=== PATIENT | female | born 1960 | race Caucasian/White ===

== ENCOUNTER 2016-09-09 10:21 | Inpatient (IN) | payer BC ==
[2016-09-08 15:48] VITALS: BMI 38.0
[~2016-09-09] VITALS: Ht 160 cm; Wt 96.2 kg
[2016-09-09] VITALS (28 sets, daily range): BP systolic 113–137; BP diastolic 50–69; PULSE 73–110; RESP 10–20; Ht 160 cm; Wt 96.2 kg
[~2016-09-09 10:21] MED LIST: ACET500C5 PO; ASPI81TA3 PO; ATOR40TA68 PO; DESFLURANE 15 MIN ONE; DEXAMETHASONE 4 MG/ML 1 ML INJ ONE; GABA300C16 PO; INSU100V23 SC; LANT3I SC; LORA-441 PO; LORA10TA3 PO; LOSA25TA2 PO; MELO7.5O PO; NOVO3I SC; PANT40TA3 PO; RANI150T9 PO; SUCR1TAB27 PO; VITA400C15 PO
[2016-09-09] MEDS ORDERED: LOSA25TA5 PO (10:50)
[2016-09-09] MEDS ORDERED: METO25TA7 PO (10:51)
[2016-09-09] MEDS ORDERED: ATOR40TA68 PO (10:51)
[2016-09-09] MEDS ORDERED: SITA100T8 PO (10:52)
[2016-09-09] MEDS ORDERED: PARO10TA76 PO (10:52)
[2016-09-09] MEDS ORDERED: CETI10TA34 PO (10:55)
[2016-09-09] MEDS ORDERED: OMEP40CA6 PO (10:56)
[2016-09-09] MEDS ORDERED: SIME125C PO (10:57)
[2016-09-09] MEDS ORDERED: LANT3I SC (10:58)
[2016-09-09] MEDS ORDERED: GABA300C16 PO (11:00)
[2016-09-09] MEDS ORDERED: METF500T4 PO (11:00)
[2016-09-09] MEDS ORDERED: ASPI81TA3 PO (11:00)
[2016-09-09] MEDS ORDERED: BACL10TA PO (11:01)
[2016-09-09] MEDS ORDERED: POLYMYXIN/BACITRACIN 1L IRRIG ONE (12:22)
[2016-09-09] MEDS ORDERED: NEOMYC/POLYMYX/BACIT 30 GM OINT ONE (12:22)
[2016-09-09] MEDS ORDERED: PROPOFOL 20 ML ONE (13:02)
[2016-09-09] MEDS ORDERED: MIDAZOLAM 1 MG/ML 2 ML INJ ONE (13:03)
[2016-09-09] MEDS ORDERED: METOCLOPRAMIDE 10 MG INJ ONE (13:03)
[2016-09-09] MEDS ORDERED: morphine SULFATE/PF (10 MG/10 ML) INJ ONE (13:03)
[2016-09-09] MEDS ORDERED: CEFAZOLIN 1 GM INJ ONE (13:13)
[2016-09-09] MEDS ORDERED: DEXAMETHASONE 4 MG/ML 1 ML INJ ONE (13:13)
--- NOTE | 2016-09-09 13:15 | HPN ---
Date/Time of Note Date/Time of Note DATE: 09/09/16 TIME: 13:15 Interval H&P Admission Note Pt. seen H&P reviewed: No system changes CANELO AVINA MD September 09, 2016 13:15
[2016-09-09] MEDS ORDERED: FENTAnyl 50 MCG/ML VIAL ONE (13:38)
[2016-09-09] MEDS ORDERED: EPHEDrine SULFATE 50 MG/5 ML SYG ONE (13:43)
[2016-09-09] MEDS ORDERED: MEPERIDINE 25 MG INJ IV PRN (14:00)
[2016-09-09] MEDS ORDERED: DIPHENHYDRAMINE 50 MG INJ IV PRN (14:00)
[2016-09-09] MEDS ORDERED: TRANEXAMIC ACID 1,000 MG in SOD CHLORIDE 0.9% 100 ML IV ONE (14:00)
[2016-09-09] MEDS ORDERED: METOCLOPRAMIDE 10 MG INJ IV PRN (14:00)
[2016-09-09] MEDS ORDERED: HYDROmorphONE (0.2 MG/ML) 10ML SYG IV PRN ×3 (14:00)
[2016-09-09] MEDS ORDERED: ONDANSETRON 4 MG INJ IV PRN ×3 (14:00→16:00)
[2016-09-09] MEDS ORDERED: NALOXONE (0.4 MG/ML) INJ IV PRN (14:30)
[2016-09-09] MEDS ORDERED: HYDROmorphONE 1 MG/ML SYG IV PRN ×3 (14:30)
[2016-09-09] MEDS: CEFAZOLIN 1 GM/50 ML (PMX) 50 ML IVPB SCH (16:10)
[2016-09-09 16:31] LABS: HEMOGLOBIN 12.8 g/dl (12.0-16.0)
[2016-09-09 16:59] LABS: CALCIUM 8.9 mg/dl (8.4-10.2); CREATININE 0.59 mg/dl (0.44-1.00)
--- NOTE | 2016-09-09 18:13 | QN ---
Documentation Comment [id number] LESLEY KAHN MD September 09, 2016 18:13
[2016-09-09] MEDS ORDERED: DEXTROSE 50% 50 ML SYRINGE IV PRN ×2 (18:30)
[2016-09-09] MEDS ORDERED: GLUCOSE GEL 15 GRAM TUBE PO PRN ×2 (18:30)
[2016-09-09] MEDS ORDERED: GLUCOSE GEL 15 GRAM TUBE BUCCAL PRN (18:30)
[2016-09-09] MEDS ORDERED: GLUCAGON 1 MG INJ IM PRN (18:30)
[2016-09-09] MEDS: LACTATED RINGER'S 1,000 ML IV SCH ×2 (18:46→23:44)
[2016-09-09] MEDS ORDERED: PAROXETINE 10 MG TAB PO SCH (21:00)
[2016-09-09] MEDS: ACCU-CHEK XX SCH (21:00)
[2016-09-09] MEDS: ATORVASTATIN 40 MG TAB PO SCH (21:04)
[2016-09-09] MEDS: VITAMIN E 400 UNITS CAP PO SCH (21:04)
[2016-09-09] MEDS: GABAPENTIN 300 MG CAP PO SCH (21:04)
[2016-09-09] MEDS: METOPROLOL (XL) 25 MG TAB PO SCH (21:04)
[2016-09-09] MEDS: INSULIN GLARGINE [LANtus] 3 ML PEN SC SCH (21:06)
[2016-09-09] MEDS: INSULIN ASPART [NOVOLOG] 3 ML PEN SC SCH (21:08)
[2016-09-10 00:15] VITALS: BP 111/66; RESP 19
[2016-09-10 00:30] VITALS: BP 110/62; PULSE 97; RESP 18
[2016-09-10] MEDS: CEFAZOLIN 1 GM/50 ML (PMX) 50 ML IVPB SCH ×2 (00:34→08:41)
[2016-09-10] MEDS: LACTATED RINGER'S 1,000 ML IV SCH ×4 (01:16→23:44)
[2016-09-10] MEDS: HYDROmorphONE 1 MG/ML SYG IM PRN (01:19)
[2016-09-10] MEDS: ACCU-CHEK XX SCH ×5 (01:29→21:00)
[2016-09-10 04:00] VITALS: BP 111/66; PULSE 99; RESP 18
[2016-09-10 05:07] LABS: ADD SCAN DIFF NO; BASOPHILS % 0.1 % (0.0-2.0); HEMATOCRIT 36.9 % (37.0-47.0); HEMOGLOBIN 11.7 g/dl (12.0-16.0); LYMPHOCYTES # 2.6 10^3/ul (0.8-2.9); LYMPHOCYTES % 18.9 % (15.0-51.0); MEAN CORPUSCULAR HEMOGLOBIN 26.9 pg (29.0-33.0); MEAN CORPUSCULAR HGB CONC 31.7 g/dl (32.0-37.0); MEAN CORPUSCULAR VOLUME 84.8 fl (82.0-101.0); MEAN PLATELET VOLUME 10.6 fl (7.4-10.4); MONOCYTES % 7.5 % (0.0-11.0); NEUTROPHILS % 73.1 % (39.0-77.0); PLATELET COUNT 273 10^3/UL (140-415); RED BLOOD COUNT 4.35 10^6/ul (4.20-5.40); RED CELL DISTRIBUTION WIDTH 14.5 % (11.5-14.5); WHITE BLOOD COUNT 13.7 10^3/ul (4.8-10.8)
[2016-09-10 05:34] LABS: POTASSIUM 4.3 mmol/L (3.5-5.1)
[2016-09-10 05:36] LABS: CREATININE 0.57 mg/dl (0.44-1.00)
[2016-09-10 05:37] LABS: CALCIUM 8.8 mg/dl (8.4-10.2)
[2016-09-10] MEDS: HYDROCODONE/APAP (5/325) TAB PO PRN ×4 (05:39→23:00)
--- NOTE | 2016-09-10 06:12 | HP ---
DATE OF ADMISSION: 09/09/2016 HISTORY OF PRESENT ILLNESS: The patient is a 56-year-old female with a history of a CVA. The patient has a history of acute stroke, hypertension, diabetes mellitus, , dyslipidemia. She underwent right knee surgery significant post- procedure. Denies any numbness or tingling. PAST MEDICAL HISTORY: As mentioned above. Positive for: 1. CVA 2. Hypertension. 3. Leukocytosis. 4. Diabetes mellitus. 5. History of hernia surgery. 6. History of . 7. History of dyslipidemia. 8. History of right knee surgery. 9. History of left ankle surgery. ALLERGIES: SULFA. SOCIAL HISTORY: Negative. FAMILY HISTORY: Negative. MEDICATION HISTORY: The patient is on: 1. Aspirin. 2. Lipitor. 3. Baclofen. 4. Cetirizine. 5. Gabapentin. 6. Insulin. 7. Losartan. 8. Metformin. 9. Metoprolol. 10. Omeprazole. 11. Paxil. 12. Simethicone. 13. Januvia. 14. Vitamin E. REVIEW OF HEENT: Unremarkable. RESPIRATORY: Unremarkable. CARDIOVASCULAR: Unremarkable. ABDOMEN: Unremarkable. EXTREMITIES: As mentioned above. PHYSICAL EXAMINATION: GENERAL: The patient is awake, alert. VITAL SIGNS: Pulse 94, blood pressure 138/59. HEAD: Atraumatic, normocephalic. Pupils are equal and reactive to light. NECK: Supple. No JVD. LUNGS: Clear. CARDIOVASCULAR: S1, S2 are normal. ABDOMEN: Soft, nontender. Bowel sounds present. No palpable mass. EXTREMITIES: No cyanosis, clubbing or edema. Patient with right knee drainage noted and also the patient has a dressing noted at this point. IMPRESSION: 1. Right knee replacement. 2. Hypertension. 3. Diabetes mellitus. 4. History of cerebrovascular accident. 5. History of neuropathy. 6. History of dyslipidemia. PLAN: To follow recommendation from Dr. Painter. Continue home medications, sliding scale. Pain medication and once cleared DVT prophylaxis and incentive spirometry. Patient's home medications will be reviewed and continued. Dictated By: LESLEY KAHN MD BS/NTS Conf#: [id number] DID#: [id number] MTDD
[2016-09-10] MEDS: KETOROLAC 30 MG INJ IV PRN ×2 (07:00→12:42)
[2016-09-10] MEDS ORDERED: DIPHENHYDRAMINE 50 MG INJ IV PRN (07:00)
[2016-09-10 07:48] VITALS: BP 101/56; RESP 16
[2016-09-10] MEDS: INSULIN ASPART [NOVOLOG] 3 ML PEN SC SCH ×4 (07:50→21:13)
--- NOTE | 2016-09-10 08:18 | PN ---
Date/Time of Note Date/Time of Note DATE: 09/10/16 TIME: 08:16 Assessment/Plan VTE Prophylaxis VTE Prophylaxis Intervention: ambulation Lines/Catheters IV Catheter Type (from Nrsg): Peripheral IV Urinary Cath still in place: Yes Subjective 24 Hr Interval Summary Free Text/Dictation Anesthesia note: A 56 year female s/p right knee replacement pod 1, under [place] and spinal is doing well. pain is controlled, no n/v, itching, headache, or back pain or inflammation. VS stable. Exam/Review of Systems Vital Signs Vitals Vital Signs Date Time Temp Pulse Resp B/P Pulse Ox O2 Delivery O2 Flow Rate FiO2 09/10/16 07:48 98.0 81 16 101/56 98 09/10/16 04:00 Nasal Cannula 09/09/16 22:00 2.0 Intake and Output 09/09/16 09/09/16 09/10/16 15:00 23:00 07:00 Intake Total 2000 ml 1922 ml Output Total 950 ml 1055 ml 830 ml Balance 1050 ml -1055 ml 1092 ml Results Result Diagram: 09/10/16 0424 09/10/16 0424 Results 24 hrs Laboratory Tests Test 09/09/16 11:48 09/09/16 16:15 09/09/16 17:35 09/09/16 20:59 Bedside Glucose 125 164 229 H Hemoglobin 12.8 Hematocrit 39.0 Sodium Level 140 Potassium Level 4.0 Chloride Level 105 Carbon Dioxide Level 30 Anion Gap 9 Blood Urea Nitrogen 13 Creatinine 0.59 Glucose Level 178 Calcium Level 8.9 Test 09/10/16 01:28 09/10/16 04:24 09/10/16 07:57 Bedside Glucose 161 134 White Blood Count 13.7 #H Red Blood Count 4.35 Hemoglobin 11.7 L Hematocrit 36.9 L Mean Corpuscular Volume 84.8 Mean Corpuscular Hemoglobin 26.9 L Mean Corpuscular Hemoglobin Concent 31.7 L Red Cell Distribution Width 14.5 Platelet Count 273 Mean Platelet Volume 10.6 #H Neutrophils % 73.1 Lymphocytes % 18.9 Monocytes % 7.5 Eosinophils % 0.0 Basophils % 0.1 Nucleated Red Blood Cells % 0.0 Neutrophils # 10.0 H Lymphocytes # 2.6 Monocytes # 1.0 H Eosinophils # 0.0 Basophils # 0.0 Nucleated Red Blood Cells # 0.0 Sodium Level 141 Potassium Level 4.3 Chloride Level 99 Carbon Dioxide Level 30 Anion Gap 16 # Blood Urea Nitrogen 14 Creatinine 0.57 Glucose Level 143 Calcium Level 8.8 Medications Medications Current Medications Naloxone HCl (Narcan) 0.1 mg Q2M PRN IV FOR RESP RATE 8 OR LESS; Start at 14:30; Stop 09/10/16 at 14:29 Ketorolac Tromethamine (Toradol) 30 mg Q6H PRN IV PAIN Last administered on 07:00; Admin Dose 30 MG; Start 09/09/16 at 14:30; Stop 09/10/16 at 14:29 Hydromorphone HCl (Dilaudid) 1 mg Q3H PRN IV BREAKTHROUGH PAIN; Start 09/09/16 at 14:30; Stop 09/10/16 at 14:29 Hydromorphone HCl (Dilaudid) 0.2 mg Q3H PRN IV PAIN LEVEL 1-5 Last administered on 09/09/16 16:07; Admin Dose 0.2 MG; Start 09/09/16 at 14:30; Stop 09/10/16 at 14:29 Hydromorphone HCl (Dilaudid) 0.4 mg Q3H PRN IV PAIN LEVEL 6-10; Start 09/09/16 at 14:30; Stop 09/10/16 at 14:29 Ondansetron HCl 4 mg 4 mg Q6H PRN IV NAUSEA AND/OR VOMITING; Start 09/09/16 at 14:30; Stop 09/10/16 at 14:29 Lactated Ringer's (Lr) 1,000 ml @ 125 mls/hr Q8H IV Last administered on 01:16; Admin Dose 125 MLS/HR; Start 09/09/16 at 15:44 Acetaminophen/ Hydrocodone Bitart ([place] (5/325)) 1 tab Q4H PRN PO PAIN LEVEL 1 -3 Last administered on 09/10/16 05:39; Admin Dose 1 TAB; Start 09/09/16 at 16: 00 Hydromorphone HCl 1 mg 1 mg Q3H PRN IM PAIN LEVEL 8-10 Last administered on 01:19; Admin Dose 1 MG; Start 09/09/16 at 16:00 Cefazolin Sodium (Ancef 1 Gm/50 ml (Pmx)) 50 ml @ 100 mls/hr Q8H IVPB Last administered on 09/10/16 00:34; Admin Dose 100 MLS/HR; Start 09/09/16 at 16:00 ; Stop 09/10/16 at 08:29 Ondansetron HCl (Zofran Inj) 4 mg Q6H PRN IV NAUSEA AND/OR VOMITING; Start at 16:00 Enoxaparin Sodium (Lovenox) 30 mg Q12 SC ; Start 09/10/16 at 09:00 Aspirin (Aspirin) 81 mg DAILY PO ; Start 09/10/16 at 09:00 Atorvastatin Calcium (Lipitor) 40 mg QHS PO Last administered on 09/09/16 21: 04; Admin Dose 40 MG; Start 09/09/16 at 21:00 Gabapentin (Neurontin) 300 mg TID PO Last administered on 09/09/16 21:04; Admin Dose 300 MG; Start 09/09/16 at 21:00 Insulin Glargine (Lantus) 35 unit QHS SC Last administered on 09/09/16 21:06; Admin Dose 35 UNIT; Start 09/09/16 at 21:00 Losartan Potassium (Cozaar) 25 mg DAILY PO ; Start 09/10/16 at 09:00 Metoprolol Succinate (Toprol Xl) 25 mg QHS PO Last administered on 09/09/16 21 :04; Admin Dose 25 MG; Start 09/09/16 at 21:00 Vitamin E (Vitamin E) 400 units BID PO Last administered on 09/09/16 21:04; Admin Dose 400 UNITS; Start 09/09/16 at 21:00 Miscellaneous Information 1 ea NOTE XX ; Start 09/09/16 at 18:30 Glucose (Glutose) 15 gm Q15M PRN PO DECREASED GLUCOSE; Start 09/09/16 at 18:30 Glucose (Glutose) 22.5 gm Q15M PRN PO DECREASED GLUCOSE; Start 09/09/16 at 18: 30 Dextrose (D50w Syringe) 25 ml Q15M PRN IV DECREASED GLUCOSE; Start 09/09/16 at 18:30 Dextrose (D50w Syringe) 50 ml Q15M PRN IV DECREASED GLUCOSE; Start 09/09/16 at 18:30 Glucagon (Glucagen) 1 mg Q15M PRN IM DECREASED GLUCOSE; Start 09/09/16 at 18:30 Glucose (Glutose) 15 gm Q15M PRN BUCCAL DECREASED GLUCOSE; Start 09/09/16 at 18 :30 Diagnostic Test (Pha) (Accu-Chek) 1 ea 02 XX ; Start 09/10/16 at 02:00 Baclofen (Lioresal) 10 mg HS PO ; Start 09/10/16 at 21:00 Paroxetine HCl (Paxil) 10 mg AM PO ; Start 09/10/16 at 09:00 Diphenhydramine HCl (Benadryl) 25 mg TID PRN IV ITCHING Last administered on t 06:53; Admin Dose 25 MG; Start 09/10/16 at 07:00 LORRAINE MULLER MD September 10, 2016 08:18
[2016-09-10] MEDS: ASPIRIN 81 MG TAB PO SCH (08:41)
[2016-09-10] MEDS: PAROXETINE 10 MG TAB PO SCH (08:41)
[2016-09-10] MEDS: GABAPENTIN 300 MG CAP PO SCH ×3 (08:41→21:10)
[2016-09-10] MEDS: LOSARTAN 25 MG TAB PO SCH (08:42)
[2016-09-10] MEDS: VITAMIN E 400 UNITS CAP PO SCH ×2 (08:42→21:10)
[2016-09-10] MEDS: ENOXAPARIN 30 MG/0.3 ML SYG SC SCH ×2 (08:47→21:13)
[2016-09-10] MEDS ORDERED: BACLOFEN 10 MG TAB PO SCH (09:00)
--- NOTE | 2016-09-10 14:14 | CONS ---
Date/Time of Note Date/Time of Note DATE: 09/10/16 TIME: 14:12 Assessment/Plan Assessment/Plan Chief Complaint/Hosp Course 1. CVA 2. Hypertension. 3. Leukocytosis. 4. Diabetes mellitus. 5. History of hernia surgery. 6. History of . 7. History of dyslipidemia. 8. History of right knee surgery. 9. History of left ankle surgery. Problems: Additional Assessment/Plan 1. Continue physical therapy 2. Continue optimizationof kidneu function Consultation Date/Type/Reason Admit Date/Time September 09, 2016 at 10:21 Initial Consult Date 09/09/2016 Reason for Consultation renal Exam/Review of Systems Vital Signs Vitals Vital Signs Date Time Temp Pulse Resp B/P Pulse Ox O2 Delivery O2 Flow Rate FiO2 09/10/16 07:48 98.0 81 16 101/56 98 09/10/16 04:00 Nasal Cannula 09/09/16 22:00 2.0 Intake and Output 09/09/16 09/09/16 09/10/16 15:00 23:00 07:00 Intake Total 2000 ml 1922 ml Output Total 950 ml 1055 ml 830 ml Balance 1050 ml -1055 ml 1092 ml Results Result Diagram: 09/10/16 0424 09/10/16 0424 Results 24 hrs Laboratory Tests Test 09/09/16 16:15 09/09/16 17:35 09/09/16 20:59 09/10/16 01:28 Hemoglobin 12.8 Hematocrit 39.0 Sodium Level 140 Potassium Level 4.0 Chloride Level 105 Carbon Dioxide Level 30 Anion Gap 9 Blood Urea Nitrogen 13 Creatinine 0.59 Glucose Level 178 Calcium Level 8.9 Bedside Glucose 164 229 H 161 Test 09/10/16 04:24 09/10/16 07:57 09/10/16 12:02 White Blood Count 13.7 #H Red Blood Count 4.35 Hemoglobin 11.7 L Hematocrit 36.9 L Mean Corpuscular Volume 84.8 Mean Corpuscular Hemoglobin 26.9 L Mean Corpuscular Hemoglobin Concent 31.7 L Red Cell Distribution Width 14.5 Platelet Count 273 Mean Platelet Volume 10.6 #H Neutrophils % 73.1 Lymphocytes % 18.9 Monocytes % 7.5 Eosinophils % 0.0 Basophils % 0.1 Nucleated Red Blood Cells % 0.0 Neutrophils # 10.0 H Lymphocytes # 2.6 Monocytes # 1.0 H Eosinophils # 0.0 Basophils # 0.0 Nucleated Red Blood Cells # 0.0 Sodium Level 141 Potassium Level 4.3 Chloride Level 99 Carbon Dioxide Level 30 Anion Gap 16 # Blood Urea Nitrogen 14 Creatinine 0.57 Glucose Level 143 Calcium Level 8.8 Bedside Glucose 134 232 H Medications Medications Current Medications Naloxone HCl (Narcan) 0.1 mg Q2M PRN IV FOR RESP RATE 8 OR LESS; Start at 14:30; Stop 09/10/16 at 14:29 Ketorolac Tromethamine (Toradol) 30 mg Q6H PRN IV PAIN Last administered on 12:42; Admin Dose 30 MG; Start 09/09/16 at 14:30; Stop 09/10/16 at 14:29 Hydromorphone HCl (Dilaudid) 1 mg Q3H PRN IV BREAKTHROUGH PAIN; Start 09/09/16 at 14:30; Stop 09/10/16 at 14:29 Hydromorphone HCl (Dilaudid) 0.2 mg Q3H PRN IV PAIN LEVEL 1-5 Last administered on 09/09/16 16:07; Admin Dose 0.2 MG; Start 09/09/16 at 14:30; Stop 09/10/16 at 14:29 Hydromorphone HCl (Dilaudid) 0.4 mg Q3H PRN IV PAIN LEVEL 6-10; Start 09/09/16 at 14:30; Stop 09/10/16 at 14:29 Ondansetron HCl 4 mg 4 mg Q6H PRN IV NAUSEA AND/OR VOMITING; Start 09/09/16 at 14:30; Stop 09/10/16 at 14:29 Lactated Ringer's (Lr) 1,000 ml @ 125 mls/hr Q8H IV Last administered on 09:21; Admin Dose 125 MLS/HR; Start 09/09/16 at 15:44 Acetaminophen/ Hydrocodone Bitart ([place] (5/325)) 1 tab Q4H PRN PO PAIN LEVEL 1 -3 Last administered on 09/10/16 09:21; Admin Dose 1 TAB; Start 09/09/16 at 16: 00 Hydromorphone HCl (Dilaudid) 1 mg Q3H PRN IM PAIN LEVEL 8-10 Last administered on 09/10/16 01:19; Admin Dose 1 MG; Start 09/09/16 at 16:00 Ondansetron HCl (Zofran Inj) 4 mg Q6H PRN IV NAUSEA AND/OR VOMITING; Start at 16:00 Enoxaparin Sodium (Lovenox) 30 mg Q12 SC Last administered on 09/10/16 08:47; Admin Dose 30 MG; Start 09/10/16 at 09:00 Aspirin (Aspirin) 81 mg DAILY PO Last administered on 09/10/16 08:41; Admin Dose 81 MG; Start 09/10/16 at 09:00 Atorvastatin Calcium (Lipitor) 40 mg QHS PO Last administered on 09/09/16 21: 04; Admin Dose 40 MG; Start 09/09/16 at 21:00 Gabapentin (Neurontin) 300 mg TID PO Last administered on 09/10/16 12:43; Admin Dose 300 MG; Start 09/09/16 at 21:00 Insulin Glargine (Lantus) 35 unit QHS SC Last administered on 09/09/16 21:06; Admin Dose 35 UNIT; Start 09/09/16 at 21:00 Losartan Potassium (Cozaar) 25 mg DAILY PO Last administered on 09/10/16 08:42 ; Admin Dose 25 MG; Start 09/10/16 at 09:00 Metoprolol Succinate (Toprol Xl) 25 mg QHS PO Last administered on 09/09/16 21 :04; Admin Dose 25 MG; Start 09/09/16 at 21:00 Vitamin E (Vitamin E) 400 units BID PO Last administered on 09/10/16 08:42; Admin Dose 400 UNITS; Start 09/09/16 at 21:00 Miscellaneous Information 1 ea NOTE XX ; Start 09/09/16 at 18:30 Glucose (Glutose) 15 gm Q15M PRN PO DECREASED GLUCOSE; Start 09/09/16 at 18:30 Glucose (Glutose) 22.5 gm Q15M PRN PO DECREASED GLUCOSE; Start 09/09/16 at 18: 30 Dextrose (D50w Syringe) 25 ml Q15M PRN IV DECREASED GLUCOSE; Start 09/09/16 at 18:30 Dextrose (D50w Syringe) 50 ml Q15M PRN IV DECREASED GLUCOSE; Start 09/09/16 at 18:30 Glucagon (Glucagen) 1 mg Q15M PRN IM DECREASED GLUCOSE; Start 09/09/16 at 18:30 Glucose (Glutose) 15 gm Q15M PRN BUCCAL DECREASED GLUCOSE; Start 09/09/16 at 18 :30 Diagnostic Test (Pha) (Accu-Chek) 1 ea 02 XX ; Start 09/10/16 at 02:00 Baclofen (Lioresal) 10 mg HS PO ; Start 09/10/16 at 21:00 Paroxetine HCl (Paxil) 10 mg AM PO Last administered on 09/10/16 08:41; Admin Dose 10 MG; Start 09/10/16 at 09:00 Diphenhydramine HCl (Benadryl) 25 mg TID PRN IV ITCHING Last administered on 06:53; Admin Dose 25 MG; Start 09/10/16 at 07:00 SABINA VIEIRA September 10, 2016 14:14
--- NOTE | 2016-09-10 16:20 | OPR ---
DATE OF OPERATION: 09/09/2016 PREOPERATIVE DIAGNOSIS: Right knee osteoarthritis. POSTOPERATIVE DIAGNOSIS: Right knee osteoarthritis. PROCEDURE PERFORMED: Right total knee arthroplasty using Jasso and Nephew components, size 4 femur Oxinium posterior stabilized, size 3 tibia, 11 mm liner, 23 mm patellar button. SURGEON: Lucille Painter MD ANESTHESIA: General. ESTIMATED BLOOD LOSS: 250 mL. COMPLICATIONS: None. PROCEDURE: The patient taken to the operating room and general anesthetic given with intubation. T wo grams of Kefzol and 2 grams of tranexamic acid administered. Tourniquet applied on the right thi gh and right leg was prepped and draped in the usual sterile manner, exsanguinated with an Esmarch b andage, tourniquet inflated to 300 mmHg. Standard anterior incision made, medial arthrotomy. Severe arthritis noted in all compartments of t he knee with mgic-ow-stnt deformity. The patient had 10 degrees of varus and flexion contracture de velop. The femur prepared with an intramedullary guide. Patella cut for a 23 mm button. The tibia with the extramedullary guide cut to size 3. Trial reduction was carried out with a size 4 femur, size 3 tibia, and with good tracking noted and full extension, stable on medial and lateral st ressing. Definitive components were brought in. Wound irrigated with pulsatile lavage. Two packs of Palacos cement mixed and components were inserted satisfactorily with good fixation and alignment . Tourniquet deflated. Hemostasis ascertained. Autotransfusion drain placed into the joint. Arth rotomy closed with #2 FiberWire sutures, skin closed with sterile zion. Compression bandage appl ied. Anesthetic reversed. The patient was taken to recovery in stable condition. Dictated By: LUCILLE GALLEGOS/NTS Conf#: [id number] DID#: [id number]
[2016-09-10 19:49] VITALS: BP 123/59; RESP 20
[2016-09-10] MEDS: ATORVASTATIN 40 MG TAB PO SCH (21:10)
[2016-09-10] MEDS: BACLOFEN 10 MG TAB PO SCH (21:10)
[2016-09-10] MEDS: METOPROLOL (XL) 25 MG TAB PO SCH (21:11)
[2016-09-10] MEDS: INSULIN GLARGINE [LANtus] 3 ML PEN SC SCH (21:14)
[2016-09-10] MEDS ORDERED: ACETAMINOPHEN 500 MG TAB PO PRN (22:00)
[2016-09-10] MEDS: CEFTRIAXONE 1 GM/50 ML (PMX) 50 ML IVPB SCH (22:49)
[2016-09-10] MEDS: ACETAMINOPHEN 325 MG TAB PO PRN (22:59)
[2016-09-10] MEDS ORDERED: ACETAMINOPHEN 325 MG TAB PO PRN (23:00)
[2016-09-10 23:49] LABS: ADD UMIC YES; URINE BILIRUBIN (Dip) NEGATIVE (NEGATIVE); URINE BLOOD (Dip) NEGATIVE (NEGATIVE); URINE COLOR LT. YELLOW (YELLOW); URINE GLUCOSE (Dip) NEGATIVE (NEGATIVE); URINE KETONES (Dip) NEGATIVE (NEGATIVE); URINE LEUKOCYTE ESTERASE (Dip) TRACE (NEGATIVE); URINE NITRITE (Dip) NEGATIVE (NEGATIVE); URINE TOTAL PROTEIN (Dip) NEGATIVE (NEGATIVE); URINE UROBILINOGEN (Dip) 0.2 E.U./dL (0.1-1.0)
[2016-09-11 00:48] LABS: SQUAMOUS EPITHELIAL CELL,UR MODERATE; URINE RBCS 0-2 /HPF (0)
[2016-09-11 00:49] LABS: BACTERIA,URINE FEW
[2016-09-11] MEDS: ACCU-CHEK XX SCH ×5 (02:00→21:33)
[2016-09-11] MEDS ORDERED: ACETAMINOPHEN 500 MG TAB PO PRN (04:00)
[2016-09-11 05:33] LABS: ADD SCAN DIFF NO
[2016-09-11 05:36] LABS: BASOPHIL # 0.1 10^3/ul (0.0-0.1); BASOPHILS % 0.4 % (0.0-2.0); EOSINOPHILS # 0.2 10^3/ul (0.0-0.5); EOSINOPHILS % 1.5 % (0.0-7.0); HEMATOCRIT 33.7 % (37.0-47.0); HEMOGLOBIN 10.7 g/dl (12.0-16.0); LYMPHOCYTES # 3.6 10^3/ul (0.8-2.9); LYMPHOCYTES % 27.1 % (15.0-51.0); MEAN CORPUSCULAR HGB CONC 31.8 g/dl (32.0-37.0); MEAN CORPUSCULAR VOLUME 84.9 fl (82.0-101.0); MEAN PLATELET VOLUME 10.9 fl (7.4-10.4); MONOCYTE # 0.9 10^3/ul (0.3-0.9); MONOCYTES % 6.5 % (0.0-11.0); NEUTROPHIL # 8.5 10^3/ul (1.6-7.5); NEUTROPHILS % 64.1 % (39.0-77.0); PLATELET COUNT 247 10^3/UL (140-415); RED BLOOD COUNT 3.97 10^6/ul (4.20-5.40); RED CELL DISTRIBUTION WIDTH 14.8 % (11.5-14.5); WHITE BLOOD COUNT 13.3 10^3/ul (4.8-10.8)
[2016-09-11] MEDS: HYDROCODONE/APAP (5/325) TAB PO PRN ×3 (05:46→17:10)
[2016-09-11 05:54] LABS: CALCIUM 8.6 mg/dl (8.4-10.2); CREATININE 0.67 mg/dl (0.44-1.00); POTASSIUM 3.8 mmol/L (3.5-5.1)
[2016-09-11] MEDS: ACETAMINOPHEN 325 MG TAB PO PRN ×2 (06:03→18:46)
[2016-09-11] MEDS: LACTATED RINGER'S 1,000 ML IV SCH ×2 (07:44→15:44)
[2016-09-11 07:48] VITALS: BP 119/60; RESP 16
[2016-09-11] MEDS: INSULIN ASPART [NOVOLOG] 3 ML PEN SC SCH ×4 (07:50→21:48)
[2016-09-11] MEDS: GABAPENTIN 300 MG CAP PO SCH ×3 (08:38→21:39)
[2016-09-11] MEDS: PAROXETINE 10 MG TAB PO SCH (08:38)
[2016-09-11] MEDS: VITAMIN E 400 UNITS CAP PO SCH ×2 (08:38→21:39)
[2016-09-11] MEDS: LOSARTAN 25 MG TAB PO SCH (08:38)
[2016-09-11] MEDS: ASPIRIN 81 MG TAB PO SCH (08:38)
[2016-09-11] MEDS: ENOXAPARIN 30 MG/0.3 ML SYG SC SCH ×2 (08:39→22:02)
[2016-09-11] MEDS: HYDROmorphONE 1 MG/ML SYG IM PRN ×4 (08:57→22:48)
--- NOTE | 2016-09-11 17:21 | PN ---
Date/Time of Note Date/Time of Note DATE: 09/11/16 TIME: 17:20 Assessment/Plan VTE Prophylaxis VTE Prophylaxis Intervention: other Lines/Catheters IV [facility] [place] Urinary Cath still in place: No Assessment/Plan Chief Complaint/Hosp Course IMPRESSION: 1. Right knee replacement. 2. Hypertension. 3. Diabetes mellitus. 4. History of cerebrovascular accident. 5. History of neuropathy. 6. History of dyslipidemia. 7 SIRS PLAN ANTIBIOTIC Problems: Subjective 24 Hr Interval Summary Gastrointestinal: no complaints Genitourinary: no complaints Musculoskeletal: bone/joint pain Exam/Review of Systems Vital Signs Vitals Vital Signs Date Time Temp Pulse Resp B/P Pulse Ox O2 Delivery O2 Flow Rate FiO2 09/11/16 07:48 98.9 88 16 119/60 90 09/10/16 04:00 Nasal Cannula 09/09/16 22:00 2.0 Intake and Output 09/10/16 09/10/16 09/11/16 15:00 23:00 07:00 Intake Total 608 ml 1400 ml 50 ml Output Total 20 ml 0 ml Balance 608 ml 1380 ml 50 ml Exam Cardiovascular: regular rate and rhythm Gastrointestinal: soft Genitourinary - Female: nl adnexae Extremities: normal pulses Results Result Diagram: 09/11/16 0430 09/11/16 0430 Results 24 hrs Laboratory Tests Test 09/10/16 17:22 09/10/16 21:09 09/10/16 22:55 09/11/16 02:28 Bedside Glucose 178 200 116 Urine Color LT. YELLOW Urine Clarity CLEAR Urine pH 6.0 Urine Specific [place] 1.020 Urine Ketones NEGATIVE Urine Nitrite NEGATIVE Urine Bilirubin NEGATIVE Urine Urobilinogen 0.2 E.U./dL Urine Leukocyte Esterase TRACE H Urine Microscopic RBC 0-2 Urine Microscopic WBC 5-10 Urine Squamous Epithelial Cells MODERATE Urine Calcium Oxalate Crystals FEW Urine Bacteria FEW Urine Hemoglobin NEGATIVE Urine Glucose NEGATIVE Urine Total Protein NEGATIVE Test 09/11/16 04:30 09/11/16 08:36 09/11/16 12:24 09/11/16 17:11 White Blood Count 13.3 H Red Blood Count 3.97 L Hemoglobin 10.7 L Hematocrit 33.7 L Mean Corpuscular Volume 84.9 Mean Corpuscular Hemoglobin 27.0 L Mean Corpuscular Hemoglobin Concent 31.8 L Red Cell Distribution Width 14.8 H Platelet Count 247 Mean Platelet Volume 10.9 H Neutrophils % 64.1 Lymphocytes % 27.1 Monocytes % 6.5 Eosinophils % 1.5 Basophils % 0.4 Nucleated Red Blood Cells % 0.0 Neutrophils # 8.5 H Lymphocytes # 3.6 H Monocytes # 0.9 Eosinophils # 0.2 Basophils # 0.1 Nucleated Red Blood Cells # 0.0 Sodium Level 139 Potassium Level 3.8 Chloride Level 101 Carbon Dioxide Level 31 Anion Gap 11 Blood Urea Nitrogen 17 Creatinine 0.67 Glucose Level 116 Calcium Level 8.6 Bedside Glucose 132 190 177 Medications Medications Current Medications Lactated Ringer's (Lr) 1,000 ml @ 125 mls/hr Q8H IV Last administered on 09:21; Admin Dose 125 MLS/HR; Start 09/09/16 at 15:44 Acetaminophen/ Hydrocodone Bitart ([place] (5/325)) 1 tab Q4H PRN PO PAIN LEVEL 1 -3 Last administered on 09/11/16 17:10; Admin Dose 1 TAB; Start 09/09/16 at 16: 00 Hydromorphone HCl (Dilaudid) 1 mg Q3H PRN IM PAIN LEVEL 8-10 Last administered on 09/11/16 14:11; Admin Dose 1 MG; Start 09/09/16 at 16:00 Ondansetron HCl (Zofran Inj) 4 mg Q6H PRN IV NAUSEA AND/OR VOMITING; Start at 16:00 Enoxaparin Sodium (Lovenox) 30 mg Q12 SC Last administered on 09/11/16 08:39; Admin Dose 30 MG; Start 09/10/16 at 09:00 Aspirin (Aspirin) 81 mg DAILY PO Last administered on 09/11/16 08:38; Admin Dose 81 MG; Start 09/10/16 at 09:00 Atorvastatin Calcium (Lipitor) 40 mg QHS PO Last administered on 09/10/16 21: 10; Admin Dose 40 MG; Start 09/09/16 at 21:00 Gabapentin (Neurontin) 300 mg TID PO Last administered on 09/11/16 13:59; Admin Dose 300 MG; Start 09/09/16 at 21:00 Insulin Glargine (Lantus) 35 unit QHS SC Last administered on 09/10/16 21:14; Admin Dose 35 UNIT; Start 09/09/16 at 21:00 Losartan Potassium (Cozaar) 25 mg DAILY PO Last administered on 09/11/16 08:38 ; Admin Dose 25 MG; Start 09/10/16 at 09:00 Metoprolol Succinate (Toprol Xl) 25 mg QHS PO Last administered on 09/10/16 21 :11; Admin Dose 25 MG; Start 09/09/16 at 21:00 Vitamin E (Vitamin E) 400 units BID PO Last administered on 09/11/16 08:38; Admin Dose 400 UNITS; Start 09/09/16 at 21:00 Miscellaneous Information 1 ea NOTE XX ; Start 09/09/16 at 18:30 Glucose (Glutose) 15 gm Q15M PRN PO DECREASED GLUCOSE; Start 09/09/16 at 18:30 Glucose (Glutose) 22.5 gm Q15M PRN PO DECREASED GLUCOSE; Start 09/09/16 at 18: 30 Dextrose (D50w Syringe) 25 ml Q15M PRN IV DECREASED GLUCOSE; Start 09/09/16 at 18:30 Dextrose (D50w Syringe) 50 ml Q15M PRN IV DECREASED GLUCOSE; Start 09/09/16 at 18:30 Glucagon (Glucagen) 1 mg Q15M PRN IM DECREASED GLUCOSE; Start 09/09/16 at 18:30 Glucose (Glutose) 15 gm Q15M PRN BUCCAL DECREASED GLUCOSE; Start 09/09/16 at 18 :30 Diagnostic Test (Pha) (Accu-Chek) 1 ea 02 XX ; Start 09/10/16 at 02:00 Baclofen (Lioresal) 10 mg HS PO Last administered on 09/10/16 21:10; Admin Dose 10 MG; Start 09/10/16 at 21:00 Paroxetine HCl (Paxil) 10 mg AM PO Last administered on 09/11/16 08:38; Admin Dose 10 MG; Start 09/10/16 at 09:00 Diphenhydramine HCl 25 mg 25 mg TID PRN IV ITCHING Last administered on 06:53; Admin Dose 25 MG; Start 09/10/16 at 07:00 Ceftriaxone Sodium (Rocephin) 50 ml @ 100 mls/hr Q24H IVPB Last administered on 09/10/16 22:49; Admin Dose 100 MLS/HR; Start 09/10/16 at 22:00 Acetaminophen (Tylenol Tab) 650 mg Q6H PRN PO PAIN AND/OR FEVER Last administered on 09/11/16 06:03; Admin Dose 650 MG; Start 09/10/16 at 23:00 LESLEY KAHN MD September 11, 2016 17:21
--- NOTE | 2016-09-11 18:18 | RADRPT ---
PROCEDURE: XR Chest. CLINICAL INDICATION: Cough and fever. TECHNIQUE: Single frontal view. COMPARISON: None. FINDINGS: There is mild air space disease at the lung bases consistent with atelectasis or pneumonia. The robert gs are otherwise clear. The heart is mildly enlarged. There is calcification in the aorta consistent with atherosclerosis. There is no pleural effusion. There is no pneumothorax. IMPRESSION: 1. Mild atelectasis or pneumonia at the lung bases. 2. Otherwise clear lungs. 3. Mild cardiomegaly. 4. Atherosclerosis. RPTAT: QQ .Milton Green MD, Date Time Electronically viewed and signed by .Milton Green MD, on 09/11/2016 18:18 .R/
[2016-09-11 19:29] VITALS: BP 117/58; RESP 18
[2016-09-11] MEDS: BACLOFEN 10 MG TAB PO SCH (21:39)
[2016-09-11] MEDS: METOPROLOL (XL) 25 MG TAB PO SCH (21:39)
[2016-09-11] MEDS: ATORVASTATIN 40 MG TAB PO SCH (21:40)
[2016-09-11] MEDS: INSULIN GLARGINE [LANtus] 3 ML PEN SC SCH (21:44)
[2016-09-11] MEDS: CEFTRIAXONE 1 GM/50 ML (PMX) 50 ML IVPB SCH (21:50)
[2016-09-12] MEDS: ACCU-CHEK XX SCH ×5 (02:26→20:55)
[2016-09-12] MEDS: HYDROmorphONE 1 MG/ML SYG IM PRN ×5 (04:25→19:41)
[2016-09-12 05:04] LABS: ADD SCAN DIFF NO
[2016-09-12 05:10] LABS: BASOPHILS % 0.3 % (0.0-2.0); EOSINOPHILS # 0.6 10^3/ul (0.0-0.5); EOSINOPHILS % 5.1 % (0.0-7.0); HEMATOCRIT 31.8 % (37.0-47.0); HEMOGLOBIN 10.2 g/dl (12.0-16.0); LYMPHOCYTES # 3.1 10^3/ul (0.8-2.9); LYMPHOCYTES % 25.8 % (15.0-51.0); MEAN CORPUSCULAR HEMOGLOBIN 27.1 pg (29.0-33.0); MEAN CORPUSCULAR HGB CONC 32.1 g/dl (32.0-37.0); MEAN CORPUSCULAR VOLUME 84.6 fl (82.0-101.0); MEAN PLATELET VOLUME 10.6 fl (7.4-10.4); MONOCYTE # 0.7 10^3/ul (0.3-0.9); MONOCYTES % 5.5 % (0.0-11.0); NEUTROPHIL # 7.5 10^3/ul (1.6-7.5); NEUTROPHILS % 62.9 % (39.0-77.0); PLATELET COUNT 216 10^3/UL (140-415); RED BLOOD COUNT 3.76 10^6/ul (4.20-5.40); RED CELL DISTRIBUTION WIDTH 14.5 % (11.5-14.5); WHITE BLOOD COUNT 11.9 10^3/ul (4.8-10.8)
[2016-09-12 05:23] LABS: POTASSIUM 3.7 mmol/L (3.5-5.1)
[2016-09-12 05:25] LABS: CREATININE 0.57 mg/dl (0.44-1.00)
[2016-09-12 05:26] LABS: CALCIUM 8.6 mg/dl (8.4-10.2)
[2016-09-12 07:36] VITALS: BP 113/55; RESP 16
[2016-09-12] MEDS: LACTATED RINGER'S 1,000 ML IV SCH ×3 (07:41→23:44)
[2016-09-12] MEDS: INSULIN ASPART [NOVOLOG] 3 ML PEN SC SCH ×4 (07:50→20:18)
[2016-09-12] MEDS: GABAPENTIN 300 MG CAP PO SCH ×3 (08:34→20:19)
[2016-09-12] MEDS: PAROXETINE 10 MG TAB PO SCH (08:34)
[2016-09-12] MEDS: ASPIRIN 81 MG TAB PO SCH (08:34)
[2016-09-12] MEDS: VITAMIN E 400 UNITS CAP PO SCH ×2 (08:34→20:21)
[2016-09-12] MEDS: ENOXAPARIN 30 MG/0.3 ML SYG SC SCH ×2 (08:35→20:24)
[2016-09-12] MEDS: LOSARTAN 25 MG TAB PO SCH (08:36)
[2016-09-12] MEDS: HYDROCODONE/APAP (5/325) TAB PO PRN ×3 (11:30→21:51)
--- NOTE | 2016-09-12 17:03 | PN ---
Date/Time of Note Date/Time of Note DATE: 09/12/16 TIME: 17:02 Assessment/Plan VTE Prophylaxis VTE Prophylaxis Intervention: other Lines/Catheters IV [facility]from [facility] Urinary Cath still in place: No Assessment/Plan Chief Complaint/Hosp Course IMPRESSION: 1. Right knee replacement. 2. Hypertension. 3. Diabetes mellitus. 4. History of cerebrovascular accident. 5. History of neuropathy. 6. History of dyslipidemia. 7 SIRS 8 high wbc PLAN ANTIBIOTIC per ortho Problems: Subjective 24 Hr Interval Summary Gastrointestinal: no complaints Genitourinary: no complaints Exam/Review of Systems Vital Signs Vitals Vital Signs Date Time Temp Pulse Resp B/P Pulse Ox O2 Delivery O2 Flow Rate FiO2 09/12/16 07:36 99.1 94 16 113/55 90 09/10/16 04:00 Nasal Cannula 09/09/16 22:00 2.0 Intake and Output 09/11/16 09/11/16 09/12/16 15:00 23:00 07:00 Intake Total 560 ml 890 ml 560 ml Output Total 900 ml 1000 ml Balance 560 ml -10 ml -440 ml Exam Respiratory: clear to auscultation Cardiovascular: regular rate and rhythm Gastrointestinal: soft Musculoskeletal: nl extremities to inspection Extremities: normal pulses Results Result Diagram: 09/12/16 0440 09/12/16 0440 Results 24 hrs Laboratory Tests Test 09/11/16 17:11 09/11/16 21:33 09/12/16 02:10 09/12/16 04:40 Bedside Glucose 177 191 211 White Blood Count 11.9 H Red Blood Count 3.76 L Hemoglobin 10.2 L Hematocrit 31.8 L Mean Corpuscular Volume 84.6 Mean Corpuscular Hemoglobin 27.1 L Mean Corpuscular Hemoglobin Concent 32.1 Red Cell Distribution Width 14.5 Platelet Count 216 Mean Platelet Volume 10.6 H Neutrophils % 62.9 Lymphocytes % 25.8 Monocytes % 5.5 Eosinophils % 5.1 Basophils % 0.3 Nucleated Red Blood Cells % 0.0 Neutrophils # 7.5 Lymphocytes # 3.1 H Monocytes # 0.7 Eosinophils # 0.6 H Basophils # 0.0 Nucleated Red Blood Cells # 0.0 Sodium Level 138 Potassium Level 3.7 Chloride Level 99 Carbon Dioxide Level 31 Anion Gap 12 Blood Urea Nitrogen 13 Creatinine 0.57 Glucose Level 134 Calcium Level 8.6 Test 09/12/16 08:31 09/12/16 12:17 Bedside Glucose 129 191 Medications Medications Current Medications Lactated Ringer's (Lr) 1,000 ml @ 125 mls/hr Q8H IV Last administered on 09:21; Admin Dose 125 MLS/HR; Start 09/09/16 at 15:44 Acetaminophen/ Hydrocodone Bitart ([place] (5/325)) 1 tab Q4H PRN PO PAIN LEVEL 1 -3 Last administered on 09/12/16 11:30; Admin Dose 1 TAB; Start 09/09/16 at 16: 00 Hydromorphone HCl (Dilaudid) 1 mg Q3H PRN IM PAIN LEVEL 8-10 Last administered on 09/12/16 15:54; Admin Dose 1 MG; Start 09/09/16 at 16:00 Ondansetron HCl (Zofran Inj) 4 mg Q6H PRN IV NAUSEA AND/OR VOMITING; Start at 16:00 Enoxaparin Sodium (Lovenox) 30 mg Q12 SC Last administered on 09/12/16 08:35; Admin Dose 30 MG; Start 09/10/16 at 09:00 Aspirin (Aspirin) 81 mg DAILY PO Last administered on 09/12/16 08:34; Admin Dose 81 MG; Start 09/10/16 at 09:00 Atorvastatin Calcium (Lipitor) 40 mg QHS PO Last administered on 09/11/16 21: 40; Admin Dose 40 MG; Start 09/09/16 at 21:00 Gabapentin (Neurontin) 300 mg TID PO Last administered on 09/12/16 12:26; Admin Dose 300 MG; Start 09/09/16 at 21:00 Insulin Glargine (Lantus) 35 unit QHS SC Last administered on 09/11/16 21:44; Admin Dose 35 UNIT; Start 09/09/16 at 21:00 Losartan Potassium (Cozaar) 25 mg DAILY PO Last administered on 09/12/16 08:36 ; Admin Dose 25 MG; Start 09/10/16 at 09:00 Metoprolol Succinate (Toprol Xl) 25 mg QHS PO Last administered on 09/11/16 21 :39; Admin Dose 25 MG; Start 09/09/16 at 21:00 Vitamin E (Vitamin E) 400 units BID PO Last administered on 09/12/16 08:34; Admin Dose 400 UNITS; Start 09/09/16 at 21:00 Miscellaneous Information 1 ea NOTE XX ; Start 09/09/16 at 18:30 Glucose (Glutose) 15 gm Q15M PRN PO DECREASED GLUCOSE; Start 09/09/16 at 18:30 Glucose (Glutose) 22.5 gm Q15M PRN PO DECREASED GLUCOSE; Start 09/09/16 at 18: 30 Dextrose (D50w Syringe) 25 ml Q15M PRN IV DECREASED GLUCOSE; Start 09/09/16 at 18:30 Dextrose (D50w Syringe) 50 ml Q15M PRN IV DECREASED GLUCOSE; Start 09/09/16 at 18:30 Glucagon (Glucagen) 1 mg Q15M PRN IM DECREASED GLUCOSE; Start 09/09/16 at 18:30 Glucose (Glutose) 15 gm Q15M PRN BUCCAL DECREASED GLUCOSE; Start 09/09/16 at 18 :30 Diagnostic Test (Pha) (Accu-Chek) 1 ea 02 XX Last administered on 09/12/16 02: 26; Admin Dose 1 EA; Start 09/10/16 at 02:00 Baclofen (Lioresal) 10 mg HS PO Last administered on 09/11/16 21:39; Admin Dose 10 MG; Start 09/10/16 at 21:00 Paroxetine HCl (Paxil) 10 mg AM PO Last administered on 09/12/16 08:34; Admin Dose 10 MG; Start 09/10/16 at 09:00 Diphenhydramine HCl 25 mg 25 mg TID PRN IV ITCHING Last administered on 06:53; Admin Dose 25 MG; Start 09/10/16 at 07:00 Ceftriaxone Sodium (Rocephin) 50 ml @ 100 mls/hr Q24H IVPB Last administered on 09/11/16 21:50; Admin Dose 100 MLS/HR; Start 09/10/16 at 22:00 Acetaminophen (Tylenol Tab) 650 mg Q6H PRN PO PAIN AND/OR FEVER Last administered on 09/11/16 18:46; Admin Dose 650 MG; Start 09/10/16 at 23:00 Polyethylene Glycol (Miralax) 17 gm DAILY PO ; Start 09/12/16 at 16:30 Docusate Sodium (Colace) 200 mg BID PO ; Start 09/12/16 at 21:00; Status LESLEY POLLACK MD September 12, 2016 17:03
[2016-09-12] MEDS: POLYETHYLENE GLYCOL 17 GM PACKET PO SCH (17:43)
[2016-09-12] MEDS: BACLOFEN 10 MG TAB PO SCH (20:19)
[2016-09-12] MEDS: ATORVASTATIN 40 MG TAB PO SCH (20:19)
[2016-09-12] MEDS: DOCUSATE SODIUM 100 MG CAP PO SCH (20:19)
[2016-09-12] MEDS: METOPROLOL (XL) 25 MG TAB PO SCH (20:21)
[2016-09-12] MEDS: INSULIN GLARGINE [LANtus] 3 ML PEN SC SCH (20:24)
[2016-09-12 20:36] VITALS: BP 112/56; RESP 18
[2016-09-12] MEDS: CEFTRIAXONE 1 GM/50 ML (PMX) 50 ML IVPB SCH (21:50)
[2016-09-13] MEDS: ACCU-CHEK XX SCH (02:00)
[2016-09-13] MEDS: HYDROCODONE/APAP (5/325) TAB PO PRN ×3 (02:16→13:18)
[2016-09-13 04:50] LABS: ADD SCAN DIFF NO
[2016-09-13 04:58] LABS: BASOPHILS % 0.4 % (0.0-2.0); EOSINOPHILS # 0.6 10^3/ul (0.0-0.5); HEMATOCRIT 31.5 % (37.0-47.0); HEMOGLOBIN 9.9 g/dl (12.0-16.0); LYMPHOCYTES % 28.2 % (15.0-51.0); MEAN CORPUSCULAR HEMOGLOBIN 26.8 pg (29.0-33.0); MEAN CORPUSCULAR HGB CONC 31.4 g/dl (32.0-37.0); MEAN CORPUSCULAR VOLUME 85.1 fl (82.0-101.0); MEAN PLATELET VOLUME 10.6 fl (7.4-10.4); MONOCYTE # 0.8 10^3/ul (0.3-0.9); MONOCYTES % 7.7 % (0.0-11.0); NEUTROPHIL # 6.1 10^3/ul (1.6-7.5); NEUTROPHILS % 57.3 % (39.0-77.0); PLATELET COUNT 223 10^3/UL (140-415); RED CELL DISTRIBUTION WIDTH 14.5 % (11.5-14.5); WHITE BLOOD COUNT 10.7 10^3/ul (4.8-10.8)
[2016-09-13 05:53] LABS: CALCIUM 8.6 mg/dl (8.4-10.2); CREATININE 0.6 mg/dl (0.44-1.00); POTASSIUM 4.3 mmol/L (3.5-5.1)
[2016-09-13] MEDS: INSULIN ASPART [NOVOLOG] 3 ML PEN SC SCH ×3 (07:50→17:55)
[2016-09-13 08:16] VITALS: BP 109/58; RESP 18
[2016-09-13] MEDS: LOSARTAN 25 MG TAB PO SCH (08:47)
[2016-09-13] MEDS: ASPIRIN 81 MG TAB PO SCH (08:47)
[2016-09-13] MEDS: DOCUSATE SODIUM 100 MG CAP PO SCH (08:47)
[2016-09-13] MEDS: PAROXETINE 10 MG TAB PO SCH (08:47)
[2016-09-13] MEDS: GABAPENTIN 300 MG CAP PO SCH ×2 (08:47→13:22)
[2016-09-13] MEDS: ENOXAPARIN 30 MG/0.3 ML SYG SC SCH (08:49)
[2016-09-13] MEDS: POLYETHYLENE GLYCOL 17 GM PACKET PO SCH (09:00)
[2016-09-13] MEDS: VITAMIN E 400 UNITS CAP PO SCH (09:00)
[2016-09-13] MEDS: HYDROmorphONE 1 MG/ML SYG IM PRN (14:34)
--- NOTE | 2016-09-13 15:30 | PDOCDIS ---
Discharge Instructions CONDITION Patient Condition: Stable HOME CARE INSTRUCTIONS: Diet Instructions: Regular ACTIVITY: Activity Restrictions: Slowly Increase Activity Rest between Activity Avoid heavy lifting Do not Drive Do not operate Machinery Do not operate Power Tool Avoid Heavy Housework Bathing Restrictions: Shower FOLLOW UP/APPOINTMENTS Appointments f/u own pcp 1 wk see LESLEY Garcia MD September 13, 2016 15:30
[2016-09-13] MEDS ORDERED: APIX5TAB PO (15:33)
[2016-09-13] MEDS ORDERED: AMOX250S25 PO (15:33)
== END 2016-09-13 19:05 | disposition home or self-care (01) | DRG 470 ==
LOC: REC 10:21 → MS1 17:25
PROVIDERS: ADMIT Specialist; ATTEND Specialist
PROC: 0SRC0J9 Replacement of Right Knee Joint with Synthetic Substitute, Cemented, Open Approach (ICD-10-PCS; principal; 2016-09-09 13:00)
DX: M17.11 Unilateral primary osteoarthritis, right knee (principal); R65.10 Systemic inflammatory response syndrome (SIRS) of non-infectious origin without acute organ dysfunction; I10 Essential (primary) hypertension; E11.9 Type 2 diabetes mellitus without complications; Z86.73 Personal history of transient ischemic attack (TIA), and cerebral infarction without residual deficits
CPT/HCPCS: 71010; 80048; 81001; 81003; 82962; 84703; 85014; 85018; 85025; 87040; 87086; 88304; 88311; 97116; 97163; 97530; J0690; J0696; J1100; J1170; J1200; J1650; J1815; J1885; J2250; J2274; J2405; J2765; J3010; J7120